=== PATIENT | male | born 1945 | race Caucasian/White ===

== ENCOUNTER 2023-02-16 09:08 | Emergency (ER) | payer OTHER ==
[~2023-02-16] VITALS: Ht 182.9 cm; Wt 90.7 kg
[2023-02-16] MEDS ORDERED: LEVO-T50 MCG PO (09:43)
[2023-02-16] MEDS ORDERED: ENALAPRIL MALEAT5 MG PO (09:44)
[2023-02-16] MEDS ORDERED: PLAVIX75 MG PO (09:45)
[2023-02-16] MEDS ORDERED: VYTORIN 10-401 EACH PO (09:45)
[2023-02-16] MEDS ORDERED: PROTONIX40 M1 PO (09:45)
[2023-02-16] MEDS ORDERED: TRILIPIX135 MG PO (09:46)
[2023-02-16] MEDS ORDERED: JANUMET 50-1,01 EACH PO (09:46)
[2023-02-16] MEDS ORDERED: ZOLOFT50 MG PO (09:47)
[2023-02-16] MEDS ORDERED: NOVOLOG100 UNIT/1 SQ (09:47)
[2023-02-16 11:29] LABS: HEMATOCRIT 41.5 % (39.0-48.0); HEMOGLOBIN 14.2 g/dL (13-16.00); MEAN CELL VOLUME 89.3 fL (80.0-100.00); MEAN CORPUSCULAR HEMOGLOBIN 30.6 pg (27.00-32.0); MEAN CORPUSCULAR HGB CONC 34.2 g/dl (32.0-36.0); PLATELET COUNT 255 K/uL (150-450); RED BLOOD COUNT 4.64 M/uL (4.00-6.00); RED CELL DISTRIBUTION WIDTH 14.2 % (11.5-14.5)
[2023-02-16] MEDS ORDERED: TAMS0.4C PO (14:30)
[2023-02-16] MEDS ORDERED: BACTRIM 400-801 EACH PO (14:30)
[2023-02-16] MEDS ORDERED: KETO10TA2 PO (14:30)
== END 2023-02-16 14:44 | disposition home or self-care (01) ==
LOC: ER 09:08
PROVIDERS: General Practice
DX: N20.1 Calculus of ureter (principal); N39.0 Urinary tract infection, site not specified; R31.9 Hematuria, unspecified; K57.30 Diverticulosis of large intestine without perforation or abscess without bleeding; K40.90 Unilateral inguinal hernia, without obstruction or gangrene, not specified as recurrent; N40.0 Benign prostatic hyperplasia without lower urinary tract symptoms; K76.0 Fatty (change of) liver, not elsewhere classified; E11.9 Type 2 diabetes mellitus without complications; Z79.4 Long term (current) use of insulin; I10 Essential (primary) hypertension